=== PATIENT | female | born 1975 | race Hispanic/Latino ===

== ENCOUNTER → 2018-01-06 | Outpatient (CLI) | payer OTHER | LOC: MAMMO 11:32 | PROVIDERS: ATTEND Obstetrics & Gynecology | DX: Z12.31 Encounter for screening mammogram for malignant neoplasm of breast (principal) | CPT/HCPCS: 77067 ==

== ENCOUNTER → 2018-02-01 | Outpatient (CLI) | payer OTHER ==
--- NOTE | 2018-02-01 15:13 | Diagnostic Imaging Report ---
PROCEDURE:US RETROPERITONEAL ( KIDNEY ). COMPARISON:None. INDICATIONS:Hematuria TECHNIQUE: Martinez-scale and color sonographic images of the bilateral kidneys and bladder where obtained in transverse and longitudinal planes. FINDINGS: RIGHT KIDNEY: Measures 10.9 x 4.3 x 5.2 cm, cortex measures 1.5 cm Cysts: None Solid masses: None Stones: None Hydronephrosis: None Echogenicity: Normal LEFT KIDNEY: Measures 11.2 x 4.1 x 5.2 cm, cortex measures 1.9 cm Cysts: None Solid masses: None Stones: None Hydronephrosis: None Echogenicity: Normal Bladder: Bilateral urinary jetting is noted. Bladder volume estimated at 69 cc. CONCLUSION: Normal renal and bladder ultrasound. Neo Johnson D.O. Dictated by: Neo Johnson D.O. on 02/01/2018 at 15:22 Electronically approved by: Neo Johnson D.O. on 02/01/2018 at 15:22
--- NOTE | 2018-02-02 09:05 | Diagnostic Imaging Report ---
#[id number] - USBRECOMRT ULTRASOUND OF THE RIGHT BREAST : 02/01/2018 Comparison is made to exam dated: 01/06/2018 mammogram - [facility]. Color flow and real-time ultrasound were performed on the entire right breast with scanning in all four quadrants, retroareolar region and the right axilla. -No cystic or solid masses are seen. IMPRESSION: NEGATIVE There is no sonographic evidence of malignancy. A 1 year screening mammogram is recommended. Neo Johnson Jr., D.O. cw/:02/01/2018 12:20:42 Psychologist Personnel: Suzanan Palacio RDMS, [facility] letter sent: Normal Exam Ultrasound BI-RADS: 1 Negative
--- NOTE | 2018-02-02 09:05 | Diagnostic Imaging Report ---
#[id number] - USBRECOMLT ULTRASOUND OF THE LEFT BREAST : 02/01/2018 Comparison is made to exam dated: 01/06/2018 mammogram - [facility]. Color flow and real-time ultrasound were performed on the entire left breast with scanning in all four quadrants, retroareolar region and the right axilla. -No cystic or solid masses are seen. IMPRESSION: NEGATIVE There is no sonographic evidence of malignancy. A 1 year screening mammogram is recommended. Neo Johnson Jr., D.O. cw/:02/01/2018 12:22:09 Field Education Coordinator: Suzanna Palacio RDMS, [facility] letter sent: Normal Exam Ultrasound BI-RADS: 1 Negative
== END ==
LOC: US 08:23
PROVIDERS: ATTEND Obstetrics & Gynecology
DX: R92.2 Inconclusive mammogram (principal); R31.9 Hematuria, unspecified
CPT/HCPCS: 76770

== ENCOUNTER → 2024-04-27 | Day surgery (SDC) | payer OTHER ==
[~2024-04-27] MED LIST: FEROSUL325 MG PO; LIDOCAINE HCL 2% LOCAL INJ 5 ML SDV VIAL INJ ONE; MIDAZOLAM HCL 2 MG/2 ML VIAL ONE; PROPOFOL IV EMULSION 0 ML IV ONE; PROPOFOL IV EMULSION 10 MG/ML 20 ML VIAL ONE
[2024-04-27] MEDS: LACTATED RINGER'S 1,000 ML ONE (05:47)
[2024-04-27 08:10] VITALS: BP 123/74; PULSE 71; RESP 17; O2SAT 97
== END | disposition home or self-care (01) ==
LOC: OR 05:38
PROVIDERS: ATTEND Internal Medicine Gastroenterology
DX: Z12.11 Encounter for screening for malignant neoplasm of colon (principal); D12.3 Benign neoplasm of transverse colon; K64.8 Other hemorrhoids; K21.9 Gastro-esophageal reflux disease without esophagitis; Z71.3 Dietary counseling and surveillance; Z78.9 Other specified health status; Z68.28 Body mass index [BMI] 28.0-28.9, adult
CPT/HCPCS: 45385; 81025; 88305; J2003; J2250; J2704; J7121